=== PATIENT | female | born 1975 | race Two or more races ===

== ENCOUNTER 2024-06-11 20:58 | Inpatient (IN) | payer MEDICAID, OTHER ==
[~2024-06-11] VITALS: Ht 160 cm; Wt 76.9 kg
--- NOTE | 2024-06-11 21:21 | ED.PDOC ---
History of Present Illness HPI Comments 48-year-old female came to ER via EMS for generalized weakness. Per EMS, patient picked up at home, were patient has been feeling generally weak past few days with episodes of recurrent falls. Complaining also of headaches, dizziness, and left lower quadrant abdominal pain with episodes of nausea and vomiting. Upon arrival of paramedics, noted hypotensive at 80/40 mmHg. Denies any active bleeding . Chief Complaint: General Weakness Time Seen by MD: 21:20 Reviewed Notes: Video Manager Notes Allergies: Coded Allergies: NO KNOWN ALLERGIES (Unverified , 06/11/24) Information Source: Patient, Emergency Med Personnel Mode of Arrival: EMS Severity: Moderate Timing: Days Duration: Intermittent Past Medical History PAST MEDICAL HISTORY: Seizures Surgical History: Denies all surgeries Family History Family History: Reviewed,noncontributory to illness Social History Smoker: Non-Smoker Alcohol: Denies ETOH Use Drugs: Denies Drug Use Lives In: Home Constitutional: denies: chills, diaphoresis, fatigue, fever, malaise, sweats, weakness, others EENTM: denies: blurred vision, double vision, ear bleeding, ear discharge, ear drainage, ear pain, ear ringing, eye pain, eye redness, hearing loss, mouth pain, mouth swelling, nasal discharge, nose bleeding, nose congestion, nose pain, photophobia, tearing, throat pain, throat swelling, voice changes, others Respiratory: denies: cough, hemoptysis, orthopnea, SOB at rest, shortness of breath, SOB with excertion, stridor, wheezing, others Cardiovascular: denies: chest pain, dizzy spells, diaphoresis, Dyspnea on exertion, edema, irregular heart beat, left arm pain, lightheadedness, palpitations, PND, syncope, others Gastrointestinal: reports: abdominal pain, nausea, vomiting; denies: abdomen distended, blood streaked bowels, constipated, diarrhea, dysphagia, difficulty swallowing, hematemesis, melena, poor appetite, poor fluid intake, rectal bleeding, rectal pain, others Neurological: reports: dizziness, fainting; denies: headache, left sided numbness, left sided weakness, numbness, paresthesia, pre-existing deficit, right sided numbness, right sided weakness, seizure, speech problems, tingling, tremors, weakness, others Musculoskeletal: denies: back pain, gout, joint pain, joint swelling, muscle pain, muscle stiffness, neck pain, others Integumetry: denies: bruises, change in color, change in hair/nails, dryness, laceration, lesions, lumps, rash, wounds, others Allergic/Immunocompromised: denies: Difficulty Healing, Frequent Infections, Hives, Itching, others Hematologic/Lymphatic: denies: anemia, blood clots, easy bleeding, easy bruising, swollen glands, others Endocrine: denies: excessive hunger, excessive sweating, excessive thirst, excessive urination, flushing, intolerance to cold, intolerance to heat, unexplained weight gain, unexplained weight loss, others Psychiatric: denies: anxiety, bipolar disorder, depression, hopeless, panic disorder, schizophrenia, sleepless, suicidal, others Physical Exam General Appearance: No Apparent Distress, Normal HEENT: Normal ENT Inspection, Pharynx Normal, TMs Normal Neck: Full Range of Motion, Non-Tender, Normal, Normal Inspection Respiratory: Chest Non-Tender, Lungs Clear, No Accessory Muscle Use, No Respiratory Distress, Normal Breath Sounds Cardiovascular: No Edema, No JVD, No Murmur, No Gallop, Normal Peripheral Pulses, Regular Rate/Rhythm Breast Exam: Deferred Gastrointestinal: No Organomegaly, Non Tender, No Pulsatile Mass, Normal Bowel Sounds, Soft Genitalia: Deferred Pelvic: Deferred Rectal: Deferred Extremities: No calf tenderness, Normal capillary refill, Normal inspection, Normal range of motion, Non-tender, No pedal edema Musculoskeletal : Apperance: Normal Neurologic: Alert, carbon setter II-XII nml as Tested, No Motor Deficits, Normal Affect, Normal Mood, No Sensory Deficits Cerebellar Function: Normal Reflexes: Normal Skin: Dry, Normal Color, Warm Lymphatic: No Adenopathy Was a procedure done? Was a procedure done?: No Differential Dx Considerations may include: Anemia, electrolyte imbalance, syncope, hypotension, abdominal pain X-Ray, Labs, Meds, VS Vital Signs Date Time Temp Pulse Resp B/P (MAP) Pulse Ox O2 Delivery O2 Flow Rate FiO2 06/12/24 01:33 80 18 89/50 (63) 94 06/12/24 01:02 69 18 95/48 (64) 94 06/12/24 00:55 81 18 98/47 (64) 94 06/12/24 00:25 77 18 94/51 (65) 95 06/11/24 23:36 97.7 68 12 95/44 (61) 98 97.7 06/11/24 23:15 88 12 88/35 (52) 98 06/11/24 21:45 58 16 98 Room Air* 0 21 06/11/24 21:20 57 13 75/38 (50) 98 06/11/24 21:13 60 06/11/24 21:03 97.7 65 16 81/40 (54) 98 Lab Test 06/11/24 23:30 06/11/24 22:16 06/11/24 21:22 06/11/24 21:14 Range/Units Urine Color Colorless Yellow Urine Clarity Clear Clear Urine pH 5.5 5.0-9.0 Urine Specific [place] 1.009 1.001-1.035 Urine Protein Negative Negative Urine Ketones Negative Negative Urine Blood Negative Negative /uL Urine Nitrite Negative Negative Urine Bilirubin Negative Negative Urine Urobilinogen Normal Negative mg/dL Urine Leukocyte Esterase Negative Negative /uL Urine RBC 1 0 - 4 /hpf Urine Microscopic WBC < 1 0-5 /HPF Urine Squamous Epithelial Cells Few <5 /hpf Urine Bacteria None seen None Seen /hpf Urine Hyaline Casts Mod 0 - 2 /lpf Urine Mucus Few None Seen Urine Glucose Normal Normal mg/dL Troponin I High Sensitivity 4 4 </=34 ng/L White Blood Count 5.2 4.4-10.8 10^3/uL Red Blood Count 3.56 L 4.0-5.20 10^6/uL Hemoglobin 8.8 L 12.2-16.2 g/dL Hematocrit 27.7 L 36.0-46.0 % Mean Corpuscular Volume 77.6 L 80.0-100.0 fL Mean Corpuscular Hemoglobin 24.7 L 28.0-32.0 pg Mean Corpuscular Hemoglobin Concent 31.8 L 32.0-36.0 g/dL Red Cell Distribution Width 17.3 H 11.8-14.3 % Platelet Count 222 140-450 10^3/uL Mean Platelet Volume 9.0 6.9-10.8 fL Neutrophils (%) (Auto) 49.8 37.0-80.0 % Lymphocytes (%) (Auto) 35.8 10.0-50.0 % Monocytes (%) (Auto) 8.3 0.0-12.0 % Eosinophils (%) (Auto) 5.0 0.0-7.0 % Basophils (%) (Auto) 1.1 0.0-2.0 % Neutrophils # (Auto) 2.6 1.6-8.6 10 ^3/uL Lymphocytes # (Auto) 1.9 0.4-5.4 10 ^3/uL Monocytes # (Auto) 0.4 0-1.3 10 ^3/uL Eosinophils # (Auto) 0.3 0-0.8 10 ^3/uL Basophils # (Auto) 0.1 0-0.2 10 ^3/uL Nucleated Red Blood Cells 0.1 % Sodium Level 136 136-145 mmol/L Potassium Level 3.6 3.5-5.1 mmol/L Chloride Level 102 98-107 mmol/L Carbon Dioxide Level 25 20-31 mmol/L Anion Gap 9 5-15 Blood Urea Nitrogen 39 H 9-23 mg/dL Creatinine 2.60 H 0.550-1.02 mg/dL Glomerular Filtration Rate Calc 22 >90 mL/min BUN/Creatinine Ratio 15.0 10.0-20.0 Serum Glucose 95 74-106 mg/dL Lactic Acid Level 1.9 0.4-2.0 mmol/L Calcium Level 9.7 8.7-10.4 mg/dL POC Glucose 93 70-106 mg/dl Current Medications Medications (Trade) Dose Ordered Sig/Susi Route Start Time Stop Time Status Last Admin Sodium Chloride 1,000 ml @ 1,000 mls/hr Q1H ONCE IV 06/11/24 21:15 06/11/24 22:14 DC 06/11/24 21:25 Ondansetron HCl (Zofran) 4 mg ONCE ONCE IV 06/11/24 21:15 06/11/24 21:16 DC 06/11/24 21:34 Sodium Chloride 2,000 ml @ 1,000 mls/hr Q2H ONCE IV 06/11/24 22:30 06/12/24 00:29 DC 06/11/24 22:59 Sodium Chloride 1,000 ml @ 1,000 mls/hr Q1H ONCE IV 06/12/24 01:15 06/12/24 02:14 06/12/24 01:19 EXAM: XY CHEST PORTABLE CLINICAL HISTORY: weakness TECHNIQUE: Single AP view of the chest WID: COMPARISON: None FINDINGS: Lines and tubes: None Chest: The heart size and pulmonary vasculature is within normal limits No pleural effusion, pneumothorax, or consolidation. The osseous structures are grossly intact. IMPRESSION: No acute cardiopulmonary abnormality. Time of 1ST Reevaluation: 21:15 Reevaluation 1ST: Unchanged Patient Education/Counseling: Diagnosis, Treatment Family Education/Counseling: No Family Present Departure 1 Departure Time of Disposition: 01:42 (Patient presented with abdominal pain that was concerning for possible appendicits, gastritis, cholecystitis, colitis, gastroenteritis, sbo, or orther possible surgical emergency. Data: 1. I ordered and reviewed the result of at least 3 labs including a CBC, BMP, and Urinalysis. 2. I independently interpreted the following tests: CT Abdoment and Pelvis is concerning for benign abdomen .Risk:This patient has a high risk of morbidity due to further diagnostic testing or treatment and may suffer from an acute abdominal process disorder. Workup reveals benign abdomen however patient is hypotensive despite multiple fluid boluses. We will empirically cover patient with antibiotics and patient should be admitted for further workup. and possible expert consultation. ) Impression: Primary Impression: Generalized weakness Additional Impressions: Abdominal pain Qualified Codes: R10.84 - Generalized abdominal pain Nausea and vomiting Qualified Codes: R11.12 - Projectile vomiting Disposition: 09 ADMITTED INPATIENT Admit to: [facility] Condition: Guarded Critical Care Note Critical Care Time?: Yes (35 min-critical care time only) Critical care comment: Hypotension Authorized and Performed by: Mabel Keith MD Total critical care time: Approximately 37 minutes Due to a high probability of clinically significant, life threatening deterioration, the patient required my highest level of preparedness to intervene emergently and I personally spent this critical care time directly and personally managing the patient. This critical care time included obtaining a history; examining the patient; pulse oximetry; ordering and review of studies; arranging urgent treatment with development of a management plan; evaluation of patient's response to treatment; frequent reassessment; and, discussions with other providers. This critical care time was performed to assess and manage the high probability of imminent, life-threatening deterioration that could result in multi-organ failure. It was exclusive of separately billable procedures and treating other patients and teaching time. Please see my other sections and the rest of the note for further information on patient assessment and treatment. Stability Stability form required: No Heart Score Heart Score: Heart Score Response (Comments) Value History Slightly Suspicious 0 EKG Normal 0 Age 45-64 1 Risk Factors 1 or 2 risk factors 1 Troponin Normal limit 0 Total 2 I personally scribed for MABEL KEITH MD ([facility]) on 06/11/24 at 21:21. Elec tronically submitted by Joey Combs ([facility]). I personally scribed for MABEL KEITH MD ([facility]) on 06/11/24 at 22:51. Electronically submitted by Joey Combs ([facility]). MABEL KEITH MD Jun 11, 2024 21:21
[2024-06-11] MEDS: SODIUM CHLORIDE 0.9% 1,000 ML IV ONE (21:25)
[2024-06-11] MEDS: ONDANSETRON HCL 4 MG/2 ML VIAL IV ONE (21:34)
[2024-06-11 21:45] VITALS: PULSE 58; RESP 16; O2SAT 98
[2024-06-11 21:58] LABS: Basophils # (auto) 0.1 10 ^3/uL (0-0.2); Basophils % (auto) 1.1 % (0.0-2.0); Eosinophils # (auto) 0.3 10 ^3/uL (0-0.8); Hematocrit 27.7 % (36.0-46.0); Hemoglobin 8.8 g/dL (12.2-16.2); Lymphocytes # (auto) 1.9 10 ^3/uL (0.4-5.4); Lymphocytes % (auto) 35.8 % (10.0-50.0); Mean Corpuscular Hemoglobin 24.7 pg (28.0-32.0); Mean Corpuscular Hgb Conc. 31.8 g/dL (32.0-36.0); Mean Corpuscular Volume 77.6 fL (80.0-100.0); Monocytes # (auto) 0.4 10 ^3/uL (0-1.3); Monocytes % (auto) 8.3 % (0.0-12.0); Neutrophils # (auto) 2.6 10 ^3/uL (1.6-8.6); Neutrophils % (auto) 49.8 % (37.0-80.0); Nucleated Red Blood Cells % 0.1 %; Platelet Count (auto) 222 10^3/uL (140-450); Red Blood Cells 3.56 10^6/uL (4.0-5.20); Red Cell Distribution Width 17.3 % (11.8-14.3); White Blood Cell 5.2 10^3/uL (4.4-10.8)
[2024-06-11 22:06] LABS: Anion Gap 9 (5-15); Carbon Dioxide 25 mmol/L (20-31); Chloride 102 mmol/L (98-107); Potassium 3.6 mmol/L (3.5-5.1); Sodium 136 mmol/L (136-145)
[2024-06-11 22:07] LABS: Calcium 9.7 mg/dL (8.7-10.4)
--- NOTE | 2024-06-11 22:07 | DVH ---
EXAM: XY CHEST PORTABLE CLINICAL HISTORY: weakness TECHNIQUE: Single AP view of the chest WID: COMPARISON: None FINDINGS: Lines and tubes: None Chest: The heart size and pulmonary vasculature is within normal limits. No pleural effusion, pneumothorax, or consolidation. The osseous structures are grossly intact. IMPRESSION: No acute cardiopulmonary abnormality.
[2024-06-11 22:12] LABS: Glucose 95 mg/dL (74-106)
[2024-06-11 22:15] LABS: Blood Urea Nitrogen 39 mg/dL (9-23)
[2024-06-11] MEDS: SODIUM CHLORIDE 0.9% 2,000 ML IV ONE (22:59)
[2024-06-12 00:06] LABS: Urine Bacteria None Seen /hpf (None Seen)
[2024-06-12 00:17] LABS: Urine Blood Negative /uL (Negative); Urine Clarity Clear (Clear); Urine Color Colorless (Yellow); Urine Hyaline Cast MOD /lpf (0 - 2); Urine Mucus FEW (None Seen); Urine Protein, UAD Negative (Negative); Urine Specific Gravity 1.009 (1.001-1.035); Urine Squamous Epithelial Cell FEW /hpf (<5); Urine Urobilinogen Normal (Negative); Urine WBC < 1 /HPF (0-5); Urine pH 5.5 (5.0-9.0)
--- NOTE | 2024-06-12 01:18 | DVH ---
CT SCAN ABDOMEN AND PELVIS WITHOUT CONTRAST CLINICAL HISTORY: abdominal pain, hypotension TECHNIQUE: Helical axial images are obtained from the lung bases through the pelvis without oral cont rast. No intravenous contrast was administered. Coronal and sagittal reformatted images were generate d from thin section reconstructions. One or more of the following radiation dose reduction techniques were used for this examination: automated exposure control, adjustment of the mA and/or kV according to patient size, use of iterative reconstruction technique. COMPARISON: None FINDINGS: LOWER THORAX: Mild dependent atelectatic changes in the imaged lung bases. ABDOMEN AND PELVIS: Evaluation of visceral and vascular structures is limited due to lack of contrast administration. As visualized, the unenhanced liver, spleen, pancreas and adrenals appear grossly unremarkable. No si zable, radiopaque cholelithiasis or biliary ductal dilatation appreciated. No hydroureteronephrosis or sizable, obstructing urinary tract calculi identified. No evidence of abdominal aortic aneurysm. Mild thickening versus underdistention of the stomach. Fluid content noted throughout the small bowel without overt dilatation. Fluid content also noted in the proximal colon. No free intraperitoneal ai r or fluid identified. Normal caliber appendix. No sizable bladder calculus. Low-density lesion in the lower uterine segment/cervical region measurin g approximately 2.3 cm in diameter. No destructive osseous lesions identified. IMPRESSION: Fluid content within the small bowel and proximal large bowel without other evidence of obstruction a t this time. Findings are nonspecific but may reflect gastroenteritis. Please correlate clinically. Recommend follow-up to resolution. Low-density lesion in the lower uterine segment/ cervix. This may represent a cyst or polyp, however, ultrasound may be obtained to further evaluate. HS:Y
[2024-06-12] MEDS: SODIUM CHLORIDE 0.9% 1,000 ML IV ONE ×2 (01:19→09:00)
[2024-06-12] MEDS ORDERED: DOCUSATE SOD 100 MG CAP PO PRN (01:30)
[2024-06-12] MEDS: ACETAMINOPHEN 325 MG TAB PO PRN (02:07)
[2024-06-12] MEDS: CEFEPIME 2GM/50ML NS 50 ML IV ONE (02:07)
[2024-06-12] MEDS: ONDANSETRON HCL 4 MG/2 ML VIAL IV PRN (02:07)
--- NOTE | 2024-06-12 02:24 | DVHHP2 ---
History of Present Illness Reason for Visit: Generalized weakness History of Present Illness The patient is a 48-year-old female with past medical history of seizure who presented to [facility] ED for evaluation of generalized weakness. As reported patient has been feeling generalized weak for the past few days with episodes of recurrent falls due to dizziness, left lower quadrant abdominal pain, episodes of nausea, vomiting, getting worse that prompted this visit. Patient was seen and evaluated in the ED, laboratory data shows WBC 5.2, platelets 222, hemoglobin 8.8, hematocrit 27.7, sodium 136, potassium 3.6, BUN 39, creatinine 2.80, GFR 22, glucose 95, troponin 4, blood pressure 81/40 trend ing up to 99/56, heart rate 74, temperature 97.7 F, O2 saturation 96% on oxygen. Abdomen/pelvis CT revealing fluid content within the small bowel and proximal large bowel without other evidence of obstruction at this time, findings nonspecific but may reflect gastroenteritis. Please see medication orders section in the computer. On my assessment, patient denies chest pain, no headache, no dizziness, no abdominal pain at this moment, no diarrhea, no nausea, no vomiting, no fever, no chills. Patient was admitted for further evaluation and medical management. Past Medical History Seizures, anemia Past Surgical History Denies all surgeries Family History Reviewed, noncontributory to the management of this case. Past Social History The patient lives at home, denies smoking, alcohol or illicit drugs abuse. Review of Systems Constitutional: Yes: Weakness; No: Fever, Chills, Sweats, Malaise, Other Eyes: No: Pain, Vision change, Conjunctivae inflammation, Eyelid inflammation, Other, Redness ENT: No: Ear pain, Ear discharge, Nose pain, Nose discharge, Nose congestion, Mouth pain, Mouth swelling, Throat pain, Throat swelling, Other Respiratory: No: Cough, Dry, Shortness of breath, SOB with excertion, Wheezing, Hemoptysis, Pleuritic Pain, Sputum, Wheezing, Other Cardiovascular: No: Chest Pain, Palpitations, Orthopnea, Paroxysmal Noc. Dyspnea, Edema, Lt Headedness, Other Gastrointestinal: Nausea, Vomiting, Abdominal Pain; No: Diarrhea, Constipation, Melena, Hematochezia, Other Genitourinary: No Dysuria, No Frequency, No Incontinence, No Hematuria, No Retention, No Other Musculoskeletal: No: other, neck pain, shoulder pain, arm pain, back pain, hand pain, leg pain, foot pain Skin: No: Rash, Lesions, Jaundice, Bruising, Other Neurological: No: Weakness, Numbness, Incoordination, Change in speech, Confusion, Seizures, Other Allergies: Coded Allergies: NO KNOWN ALLERGIES (Unverified , 06/11/24) Medications Current Medications Medications Dose Ordered Sig/Susi Route Start Time Stop Time Status Last Admin Dose Admin Acetaminophen/ Hydrocodone Bitart 1 tab Q4HP PRN PO 06/12/24 01:30 Ondansetron HCl 4 mg Q4HP PRN IV 06/12/24 01:30 06/12/24 02:07 4 MG Docusate Sodium 100 mg BIDPRN PRN PO 06/12/24 01:30 Acetaminophen 650 mg Q6HP PRN PO 06/12/24 01:30 06/12/24 02:07 650 MG Levetiracetam 100 ml @ 400 mls/hr BID IV 06/12/24 10:00 Exam Vital Signs Vital Signs Date Time Temp Pulse Resp B/P (MAP) Pulse Ox O2 Delivery O2 Flow Rate FiO2 06/12/24 02:13 74 18 99/56 (70) 96 06/11/24 23:36 97.7 97.7 06/11/24 21:45 Room Air* 0 21 General Appearance: Alert, Oriented X3, Cooperative, No acute distress HEENT: Atraumatic, PERRLA, EOMI, Mucous membr. moist/pink Respiratory: Clear to auscultation, Normal air movement Cardiovascular: Regular rate, Normal S1, Normal S2, No murmurs Abdominal: Normal bowel sounds, Soft, No tenderness, No hepatospenomegaly, No masses Extremities: No clubbing, No cyanosis, No edema, Normal pulses, No tenderness/swelling Skin: No rashes, No breakdown, No significant lesion Neuro: Normal speech, Normal tone, Sensation intact, Cranial nerves 3-12 NL, Reflexes 2+, Other (Generalized weakness) Psych/Mental Status: Mental status NL, Mood NL Labs/Xrays Labs Test 06/11/24 23:30 06/11/24 22:16 06/11/24 21:22 06/11/24 21:14 Range/Units Urine Color Colorless Yellow Urine Clarity Clear Clear Urine pH 5.5 5.0-9.0 Urine Specific [place] 1.009 1.001-1.035 Urine Protein Negative Negative Urine Ketones Negative Negative Urine Blood Negative Negative /uL Urine Nitrite Negative Negative Urine Bilirubin Negative Negative Urine Urobilinogen Normal Negative mg/dL Urine Leukocyte Esterase Negative Negative /uL Urine RBC 1 0 - 4 /hpf Urine Microscopic WBC < 1 0-5 /HPF Urine Squamous Epithelial Cells Few <5 /hpf Urine Bacteria None seen None Seen /hpf Urine Hyaline Casts Mod 0 - 2 /lpf Urine Mucus Few None Seen Urine Glucose Normal Normal mg/dL Troponin I High Sensitivity 4 </=34 ng/L White Blood Count 5.2 4.4-10.8 10^3/uL Red Blood Count 3.56 L 4.0-5.20 10^6/uL Hemoglobin 8.8 L 12.2-16.2 g/dL Hematocrit 27.7 L 36.0-46.0 % Mean Corpuscular Volume 77.6 L 80.0-100.0 fL Mean Corpuscular Hemoglobin 24.7 L 28.0-32.0 pg Mean Corpuscular Hemoglobin Concent 31.8 L 32.0-36.0 g/dL Red Cell Distribution Width 17.3 H 11.8-14.3 % Platelet Count 222 140-450 10^3/uL Mean Platelet Volume 9.0 6.9-10.8 fL Neutrophils (%) (Auto) 49.8 37.0-80.0 % Lymphocytes (%) (Auto) 35.8 10.0-50.0 % Monocytes (%) (Auto) 8.3 0.0-12.0 % Eosinophils (%) (Auto) 5.0 0.0-7.0 % Basophils (%) (Auto) 1.1 0.0-2.0 % Neutrophils # (Auto) 2.6 1.6-8.6 10 ^3/uL Lymphocytes # (Auto) 1.9 0.4-5.4 10 ^3/uL Monocytes # (Auto) 0.4 0-1.3 10 ^3/uL Eosinophils # (Auto) 0.3 0-0.8 10 ^3/uL Basophils # (Auto) 0.1 0-0.2 10 ^3/uL Nucleated Red Blood Cells 0.1 % Sodium Level 136 136-145 mmol/L Potassium Level 3.6 3.5-5.1 mmol/L Chloride Level 102 98-107 mmol/L Carbon Dioxide Level 25 20-31 mmol/L Anion Gap 9 5-15 Blood Urea Nitrogen 39 H 9-23 mg/dL Creatinine 2.60 H 0.550-1.02 mg/dL Glomerular Filtration Rate Calc 22 >90 mL/min BUN/Creatinine Ratio 15.0 10.0-20.0 Serum Glucose 95 74-106 mg/dL Lactic Acid Level 1.9 0.4-2.0 mmol/L Calcium Level 9.7 8.7-10.4 mg/dL POC Glucose 93 70-106 mg/dl PATIENT: SKYLER PAZ ACCT: [id number] UNIT: [id number] : 1975 LOC: ER ROOM / BED: / AGE / SEX: 48 / F ADM STATUS: REG ER SERVICE [id number] ORDERING PHYSICIAN: MABEL SUH MD PROCEDURE(s): ABPL - CT AB PEL WO CON-NO ORAL OR IV REASON: abdominal pain, hypotension ORDER NUMBER(s): [id number], ACCESSION NUMBER(s): [id number] CT SCAN ABDOMEN AND PELVIS WITHOUT CONTRAST CLINICAL HISTORY: abdominal pain, hypotension TECHNIQUE: Helical axial images are obtained from the lung bases through the pelvis without oral contrast. No intravenous contrast was administered. Coronal and sagittal reformatted images were generated from thin section reconstructions. One or more of the following radiation dose reduction techniques were used for this examination: automated exposure control, adjustment of the mA and/or kV according to patient size, use of iterative reconstruction technique. COMPARISON: None FINDINGS: LOWER THORAX: Mild dependent atelectatic changes in the imaged lung bases. ABDOMEN AND PELVIS: Evaluation of visceral and vascular structures is limited due to lack of contrast administration. As visualized, the unenhanced liver, spleen, pancreas and adrenals appear grossly unremarkable. No sizable, radiopaque cholelithiasis or biliary ductal dilatation appreciated. No hydroureteronephrosis or sizable, obstructing urinary tract calculi identified. No evidence of abdominal aortic aneurysm. Mild thickening versus underdistention of the stomach. Fluid content noted throughout the small bowel without overt dilatation. Fluid content also noted in the proximal colon. No free intraperitoneal air or fluid identified. Normal caliber appendix. No sizable bladder calculus. Low-density lesion in the lower uterine segment/cervical region measuring approximately 2.3 cm in diameter. No destructive osseous lesions identified. IMPRESSION: Fluid content within the small bowel and proximal large bowel without other evidence of obstruction at this time. Findings are nonspecific but may reflect gastroenteritis. Please correlate clinically. Recommend follow-up to resolution. Low-density lesion in the lower uterine segment/cervix. This may represent a cyst or polyp, however, ultrasound may be obtained to further evaluate. ORDERING PHYSICIAN: MABEL SUH MD PROCEDURE(s): CXRP - CHEST PORTABLE REASON: weakness ORDER NUMBER(s): [id number], ACCESSION NUMBER(s): [id number] EXAM: XY CHEST PORTABLE CLINICAL HISTORY: weakness TECHNIQUE: Single AP view of the chest WID: COMPARISON: None FINDINGS: Lines and tubes: None Chest: The heart size and pulmonary vasculature is within normal limits. No pleural effusion, pneumothorax, or consolidation. The osseous structures are grossly intact. IMPRESSION: No acute cardiopulmonary abnormality. Assessment/Plan Assessment/Plan Generalized weakness Abdominal pain Acute renal injury Anemia, unspecified Generalized abdominal pain Nausea and vomiting Projectile vomiting Plan 1. Admit to telemetry unit 2. Breathing treatment 3. Pain control management 4. IV antibiotic management 5. Management of fluids and electrolytes 6. Consultation for hospitalist 7. Diagnostic test chest x-ray 8. DVT prophylaxis on SCDs 9. Repeat labs CBC, CMP in a.m. 10. Home medication reviewed and reconciled 11. Continue with current medical management 12. Treatment plan discussed with patient and RN. Patient verbalized understanding. Plan discussed with: Patient, Other (RN) My Orders Orders - LEEANNE BEVERLY DNP Procedure Category Date Status Time Complete Blood Count LAB 06/12/24 Logged 04:00 Comprehensive LAB 06/12/24 Logged Metabolic Panel 04:00 Type And Screen BBK 06/12/24 In Process 01:16 *[facility] CONS 06/12/24 Transmitted -[place] 01:16 Allergies MARCELINO 06/12/24 In Process 01:16 Code Status CODE 06/12/24 Transmitted 01:16 Renal DIET 06/12/24 Transmitted Standard(2gna,3gk,Lopho) Breakfast Oxygen Per Hour RT 06/12/24 Transmitted 01:16 Hydrocodone-Acet PHA 06/12/24 In Process 5/325mg Tab ([place] 01:30 Ondansetron Hcl PHA 06/12/24 In Process (Zofran) 01:30 Docusate Sodium PHA 06/12/24 In Process Capsule ([place] 01:30 Complete Blood Count LAB 06/13/24 Verified 04:00 Comprehensive LAB 06/13/24 Verified Metabolic Panel 04:00 Condition: Serious MARCELINO 06/12/24 In Process 01:16 Acetaminophen Tablet PHA 06/12/24 In Process (Tylenol Tablet) 01:30 Bedrest With Bathroom MARCELINO 06/12/24 In Process Privileg 01:16 Sequential MARCELINO 06/12/24 In Process Compression Device Levetiracetam 500 PHA 06/12/24 In Process Mg/100ml (Levetiraceta 10:00 Problem List: (1) Generalized weakness (2) Abdominal pain (3) Nausea and vomiting (4) Projectile vomiting (5) Generalized abdominal pain (6) Anemia, unspecified (7) Acute renal injury Date of Service: Jun 12, 2024 Billing Provider: LEEANNE BEVERLY DNP Common Visit Codes: [id number] INP/OBS CARE (HIGH) LEEANNE BEVERLY DNP Jun 12, 2024 02:24
[2024-06-12] MEDS ORDERED: NITROGLYCERIN 0.4 MG SL TAB SL PRN (02:30)
[2024-06-12] MEDS ORDERED: MORPHINE SULFATE INJ 2 MG/ml SYRG IV PRN (02:30)
[2024-06-12] MEDS: HYDROcodone-ACET 5/325MG TAB PO PRN (04:51)
[2024-06-12] MEDS: LACTATED RINGER'S 2,000 ML IV ONE (05:08)
[2024-06-12 05:33] LABS: COVID19 ANTIGEN SOFIA FIA NEGATIVE (NEGATIVE); Rapid Influenza A Negative (Negative); Rapid Influenza B Negative (Negative)
[2024-06-12 05:47] LABS: Hemoglobin 8.4 g/dL (12.2-16.2); Monocytes # (auto) 0.3 10 ^3/uL (0-1.3); Neutrophils # (auto) 3.6 10 ^3/uL (1.6-8.6)
[2024-06-12 05:49] LABS: Basophils # (auto) 0.1 10 ^3/uL (0-0.2); Basophils % (auto) 0.9 % (0.0-2.0); Eosinophils # (auto) 0.2 10 ^3/uL (0-0.8); Eosinophils % (auto) 2.7 % (0.0-7.0); Hematocrit 26.8 % (36.0-46.0); Lymphocytes # (auto) 1.5 10 ^3/uL (0.4-5.4); Lymphocytes % (auto) 27.1 % (10.0-50.0); Mean Corpuscular Hemoglobin 24.4 pg (28.0-32.0); Mean Corpuscular Hgb Conc. 31.3 g/dL (32.0-36.0); Mean Corpuscular Volume 78.1 fL (80.0-100.0); Monocytes % (auto) 6.1 % (0.0-12.0); Neutrophils % (auto) 63.2 % (37.0-80.0); Nucleated Red Blood Cells % 0.1 %; Platelet Count (auto) 206 10^3/uL (140-450); Red Blood Cells 3.43 10^6/uL (4.0-5.20); Red Cell Distribution Width 17.5 % (11.8-14.3); White Blood Cell 5.7 10^3/uL (4.4-10.8)
[2024-06-12 06:08] LABS: Alanine Aminotransferase 21 U/L (7-40); Alkaline Phosphatase 54 U/L (46-116); Anion Gap 7 (5-15); BUN/Creatinine Ratio 21.2 (10.0-20.0); Blood Urea Nitrogen 22 mg/dL (9-23); Carbon Dioxide 21 mmol/L (20-31); Glucose 93 mg/dL (74-106); Potassium 3.6 mmol/L (3.5-5.1); Sodium 140 mmol/L (136-145)
[2024-06-12 06:22] LABS: Albumin 3.1 g/dL (3.2-4.8); Aspartate Aminotransferase < 8 U/L (13-40); Chloride 112 mmol/L (98-107); Total Protein 4.8 g/dL (5.7-8.2)
[2024-06-12 06:35] LABS: Bilirubin, Total 0.2 mg/dL (0.2-1.0)
--- NOTE | 2024-06-12 06:45 | ECG ---
[facility] Test Date: 2024-06-11 Test Time: 21:13:35 Pat Name: SKYLER PAZ Department: ER Room: [address] [place] [address] Gender: F [employer] Consultant: PONCE : 1975 Requested By: MABEL SUH Order Number: [id number] Reading MD: Sea Fernández Measurements Intervals [place] Rate: 60 P: 35 TX: 124 QRS: 70 QRSD: 96 T: 47 QT: 433 QTc: 433 Interpretive Statements Sinus rhythm Borderline low voltage, extremity leads ST elev, probable normal early repol pattern Electronically Signed On 06-12-2024 8:22:02 PST by Sea Fernández Please click the below link to view image of tracing.
[2024-06-12] MEDS: SODIUM CHLORIDE 0.9% 1,000 ML IV SCH (08:15)
[2024-06-12 09:18] VITALS: BP 114/64; PULSE 83; RESP 18; TEMP 97.4; O2SAT 98
[2024-06-12 09:22] LABS: % Iron Saturation 13.5 % (15-50)
[2024-06-12 09:29] LABS: Ferritin 8.1 ng/mL (10-291); Folate (Folic Acid) 7.07 ng/mL (>5.38)
[2024-06-12] MEDS: PANTOPRAZOLE 40 MG/10 ML VIAL INJ IV ONE ×2 (11:16→18:41)
[2024-06-12] MEDS: levETIRAcetam 500 mg/100ml 100 ML IV SCH (11:17)
[2024-06-12] MEDS ORDERED: BUPR5DIS TOP (12:13)
[2024-06-12] MEDS ORDERED: HYDR-4902 PO (12:13)
[2024-06-12] MEDS ORDERED: TOPI100T29 PO (12:13)
[2024-06-12] MEDS ORDERED: TIZA4CAP PO (12:13)
[2024-06-12] MEDS ORDERED: PANT40TA2 PO (12:13)
[2024-06-12] MEDS ORDERED: KEP500T PO (12:13)
[2024-06-12 13:00] VITALS: BP 122/77; PULSE 95; RESP 17; TEMP 98.4; O2SAT 98
[2024-06-12] MEDS ORDERED: CEFEPIME 1GM/ 50ML 50 ML IV SCH (14:00)
--- NOTE | 2024-06-12 14:57 | DVHPNRES ---
Progress Note Date Seen: Jun 12, 2024 Resident Creating Document: PAP[place] PAN RESIDENT Medical Necessity Reason Pt with a Central, PICC or Fol: No Subjective Review of Systems Patient is 48 years old female with past medical history of seizure disorder, history of gastritis, migraine came with a complaint of abdominal pain, nausea and vomiting that started 3-4 weeks before. Patient also reported came to the ER 3-4 weeks before after she was discharged home with the advised to follow up with the primary care physician and also a rd scientist. As per patient she could not get in happened from the PCP. But her symptoms has been getting worse. Gradually she has been feeling tired and fatigue and weakness. Patient reported that last couple of days her pain has been worsening, crampy in nature, inability region, 9/10. Patient also endorsed nausea and vomiting several times, cleared watery, no patient also endorsed loose motion for last 3 days, watery, no blood. Also endorsed several fall at home, no head injury. Patient had a history of blood transfusion twice 1 in six-month before [facility] 1 in the [facility] 1 year before. Patient denied any fever, acute joint pain or swelling, chest pain or shortness of breath dysarthria or change in vision. Initial lab workup revealed anemia with a hemoglobin 8.8, MCV 77.6, RDW 17.3, NCH 24.7, MCHC 31.8. Serum iron 39, ferritin 8.1. elevated BUN 39, elevated serum creatinine 2.6, albumin 3.1. Urinalysis negative for UTI, COVID test influenza type A and B was negative. Chest x-ray negative for acute cardiopulmonary abnormality. CT abdomen and Pelvis revealed- Fluid content within the small bowel and proximal large bowel without other evidence of obstruction at this time. Findings are nonspecific but may reflect gastroenteritis. Please correlate clinically. Recommend follow-up to resolution. Low-density lesion in the lower uterine segment/ cervix. This may represent a cyst or polyp, however, ultrasound may be obtained to further evaluate. PMH-tubal ligation PSH- seizure disorder, history of gastritis, migraine Allergy- NKDA Personal History/ Social History- lives at home, denies smoking, alcoholism, drug abuse Patient was seen today at the bedside. Cardiovascular- deny acute chest pain or shortness of breath or cough or palpitation Respiratory denies cough or short of breath or wheezing Musculoskeletal-denies acute joint swelling or tenderness or redness Neurological- denies acute dysarthria, dysphagia, change in vision Psychiatry- denies depression or SI or HI Skin- denies acute rash or purpura Patient was seen today for clinical evaluation. Labs and chart reviewed. Patient complained of ongoing abdominal pain and nausea and vomiting. Lab revealed a trending down serum creatinine 1.02 and trending down BUN 22. Hemoglobin 8.4. Patient's BP was towards the lower trend. Ordered IV normal saline 1 L IV bolus. Objective vital signs Vital Sign Date Time Temp Pulse Resp B/P (MAP) Pulse Ox O2 Delivery O2 Flow Rate FiO2 06/12/24 13:00 98.4 95 17 122/77 (92) 98 98.4 06/12/24 08:42 Room Air* 0 21 Total Intake and Output 06/11/24 06/11/24 06/12/24 15:00 23:00 07:00 Intake Total 1000 ml Balance 1000 ml medications Current Medications Medications Dose Ordered Sig/Susi Route Start Time Stop Time Status Last Admin Dose Admin Acetaminophen/ Hydrocodone Bitart 1 tab Q4HP PRN PO 06/12/24 01:30 06/12/24 13:39 1 TAB Ondansetron HCl 4 mg Q4HP PRN IV 06/12/24 01:30 06/12/24 04:49 4 MG Docusate Sodium 100 mg BIDPRN PRN PO 06/12/24 01:30 Acetaminophen 650 mg Q6HP PRN PO 06/12/24 01:30 06/12/24 02:07 650 MG Levetiracetam 100 ml @ 400 mls/hr BID IV 06/12/24 10:00 06/12/24 11:17 400 MLS/HR Nitroglycerin 0.4 mg Q5MINP PRN SL 06/12/24 02:30 Morphine Sulfate 2 mg Q30M PRN IV 06/12/24 02:30 Sodium Chloride 1,000 ml @ 100 mls/hr Q10H IV 06/12/24 08:15 06/12/24 08:15 100 MLS/HR Pantoprazole Sodium 40 mg DAILY IV 06/13/24 10:00 Ceftriaxone Sodium 50 ml @ 100 mls/hr DAILY@09 IV 06/13/24 09:00 Metronidazole 100 ml @ 100 mls/hr Q8HR IV 06/12/24 22:00 Examination General examination- HEENT- PEERLA, no acute nasal discharge Cardiovascular- S1-S2 audible, rate and rhythm regular, no murmur Respiratory- CTAB, no wheeze or rhonchi Gastrointestinal-nontender, bowel sound+. Nondistended Musculoskeletal-no acute joint swelling or tenderness or redness# Lower extremity- Neurological- cranial nerves intact, no acute dysarthria or dysphagia Psychiatry- denies depression or SI or HI Skin- no acute rash or purpura laboratory and microbiology Laboratory Tests 06/12/24 05:25 Test 06/12/24 05:25 Range/Units Serum Glucose 93 74-106 mg/dL Problem List/Assessment/Plan Problem List/Assessment/Plan Acute gastroenteritis Intractable nausea and vomiting Hypotension likely due to dehydration Generalized weakness likely due to anemia, gastroenteritis and dehydration DARLINE likely due to VMN Moderate anemia likely iron-deficiency anemia, microcytic hypochromic anemia History of recurrent fall, no head injury reported Suspected cervical cyst or polyp Plan -continue IV fluid as prescribed Continue ceftriaxone 1 g IV daily Continue metronidazole 500 mg IV q.8h Continue pantoprazole 40 mg IV daily -continue pain medication as prescribed Iron supplement as prescribed Resume other home medication as appropriate Patient was advised to follow up with Gynecology and Obstetrics further evaluation and care of suspected cervical cyst or polyp Goals of care/advance care planning; FULL CODE; discussed with the patient >15 minutes PUD prophylaxis: Pantoprazole DVT prophylaxis: Plan discussed with Dr. Huff , nursing staff, patient Total time spent on patient evaluation, chart review, assessment and plan, discussion discussion >31 minutes Plan discussed with: Patient Plan discussed with: Patient, Other (RN) My Orders My Orders Orders - PAPO PAN RESIDENT Procedure Category Date Status Time Sodium Chloride 0.9% PHA 06/12/24 In Process 08:15 Stool Occult Blood LAB 06/12/24 Logged 08:48 Pantoprazole PHA 06/13/24 In Process (Protonix) 10:00 Iron Sucrose Complex PHA 06/13/24 In Process (Venofer) 12:00 Ceftriaxone 1gm/50ml PHA 06/13/24 In Process D5w (Rocephin) 09:00 Metronidazole PHA 06/12/24 In Process 500mg/100ml (Flagyl 22:00 Date of Service: Jun 12, 2024 Billing Provider: SHARI LAWRENCE MD Common Visit Codes: [id number] INP/OBS CARE(HIGH) P[place] RESIDENT Jun 12, 2024 14:57 SHARI LAWRENCE MD Jun 15, 2024 00:15
[2024-06-12] MEDS: metroNIDAZOLE 500MG/100ML 100 ML IV ONE (15:34)
[2024-06-12] MEDS: cefTRIAXone 1GM/50ML D5W 50 ML IV ONE (15:35)
--- NOTE | 2024-06-12 15:58 | DVHINCON2 ---
Date of service: Jun 12, 2024 Referring Physician Kedar De León NP Reason for Consultation Acute kidney injury History of Present Illness Mrs. Ross is a 48-year-old female with presentation hospital after reported seizure. Current consultation requested due to elevated serum creatinine to the two range upon admission. She was seen in ARDS syndrome 7. This afternoon. She is awake alert she is tolerating oral fluids. She denies prior history of underlying kidney insufficiency. Subsequent lab data notable for brisk resolution to kidney injury. Past Medical History Seizure disorder Allergies: Coded Allergies: NO KNOWN ALLERGIES (Unverified , 06/11/24) Home Meds Reported Medications Pantoprazole Sodium Sesquihydr (Protonix) 40 Mg Tab, 40 MG PO DAILY, #30 TAB 06/12/24 Buprenorphine (BUTRANS) 5 Mcg/Hr Dis, 1 PATCH TOP QWEEKLY, #4 PATCH 1 Refill 06/12/24 Hydrocodone-Acetaminophen (Hydrocodone Bitartrate/AC 5-325 mg) 1 Tab Tab, 1 TAB PO Q6HPRN, TAB 06/12/24 Tizanidine Hydrochloride (Zanaflex) 4 Mg Cap, 1 CAP PO BID, #60 CAP 06/12/24 Topiramate (Topamax) 100 Mg Tab, 200 MG PO DAILY, TAB 06/12/24 Levetiracetam (KEPPRA TABLET) 500 Mg Tb, 750 MG PO BID, TAB 06/12/24 Current Medications Current Medications Medications (Trade) Dose Ordered Sig/Susi Route PRN Reason Start Time Stop Time Status Last Admin Acetaminophen/ Hydrocodone Bitart (Heartwell 5/325MG Tab) 1 tab Q4HP PRN PO MODERATE PAIN (4-6 PAIN SCALE) 06/12/24 01:30 06/12/24 13:39 Ondansetron HCl (Zofran) 4 mg Q4HP PRN IV NAUSEA / VOMITING 06/12/24 01:30 06/12/24 04:49 Docusate Sodium (Colace Capsule) 100 mg BIDPRN PRN PO FOR CONSTIPATION 06/12/24 01:30 Acetaminophen (Tylenol Tablet) 650 mg Q6HP PRN PO PAIN SCALE 1-3 OR TEMP>100.4 06/12/24 01:30 06/12/24 02:07 Levetiracetam 100 ml @ 400 mls/hr BID IV 06/12/24 10:00 06/12/24 11:17 Nitroglycerin (Ntrostat Sublingual) 0.4 mg Q5MINP PRN SL FOR CHEST PAIN 06/12/24 02:30 Morphine Sulfate 2 mg Q30M PRN IV FOR CHEST PAIN 06/12/24 02:30 Cefepime HCl 50 ml @ 12.5 mls/hr Q12H IV 06/12/24 14:00 06/12/24 12:36 DC Sodium Chloride 1,000 ml @ 100 mls/hr Q10H IV 06/12/24 08:15 06/12/24 08:15 Pantoprazole Sodium (Protonix) 40 mg DAILY IV 06/13/24 10:00 Ceftriaxone Sodium 50 ml @ 100 mls/hr DAILY@09 IV 06/13/24 09:00 Metronidazole 100 ml @ 100 mls/hr Q8HR IV 06/12/24 22:00 Family History: Diabetes mellitus G8 MOTHER G8 FATHER FH: kidney disease G8 FATHER Review of Systems Denies excessive use of NSAIDs, gross hematuria, dysuria, Coca-[employer]a colored urine, skin rash. H&P Exam Vital Signs/I&O Vital Sign Date Time Temp Pulse Resp B/P (MAP) Pulse Ox O2 Delivery O2 Flow Rate FiO2 06/12/24 13:00 98.4 95 17 122/77 (92) 98 98.4 06/12/24 08:42 Room Air* 0 21 Intake and Output 06/11/24 06/12/24 19:00 07:00 Intake Total 1000 ml Balance 1000 ml Intake IV Total 1000 ml Physical Exam Gen: nad heent: nc/at, mmm lungs: cta anteriorly cvs: no rub abd: soft, bowel sounds audible ext: no edema skin: no rash neuro: alert and oriented Labs/Diagnostic Data Labs/Diagnostic Data Laboratory Tests Test 06/12/24 05:25 06/12/24 04:30 06/11/24 23:30 06/11/24 22:16 Range/Units White Blood Count 5.7 4.4-10.8 10^3/uL Red Blood Count 3.43 L 4.0-5.20 10^6/uL Hemoglobin 8.4 L 12.2-16.2 g/dL Hematocrit 26.8 L 36.0-46.0 % Mean Corpuscular Volume 78.1 L 80.0-100.0 fL Mean Corpuscular Hemoglobin 24.4 L 28.0-32.0 pg Mean Corpuscular Hemoglobin Concent 31.3 L 32.0-36.0 g/dL Red Cell Distribution Width 17.5 H 11.8-14.3 % Platelet Count 206 140-450 10^3/uL Mean Platelet Volume 8.8 6.9-10.8 fL Neutrophils (%) (Auto) 63.2 37.0-80.0 % Lymphocytes (%) (Auto) 27.1 10.0-50.0 % Monocytes (%) (Auto) 6.1 0.0-12.0 % Eosinophils (%) (Auto) 2.7 0.0-7.0 % Basophils (%) (Auto) 0.9 0.0-2.0 % Neutrophils # (Auto) 3.6 1.6-8.6 10 ^3/uL Lymphocytes # (Auto) 1.5 0.4-5.4 10 ^3/uL Monocytes # (Auto) 0.3 0-1.3 10 ^3/uL Eosinophils # (Auto) 0.2 0-0.8 10 ^3/uL Basophils # (Auto) 0.1 0-0.2 10 ^3/uL Nucleated Red Blood Cells 0.1 % Sodium Level 140 136-145 mmol/L Potassium Level 3.6 3.5-5.1 mmol/L Chloride Level 112 #H 98-107 mmol/L Carbon Dioxide Level 21 20-31 mmol/L Anion Gap 7 5-15 Blood Urea Nitrogen 22 # 9-23 mg/dL Creatinine 1.04 #H 0.550-1.02 mg/dL Glomerular Filtration Rate Calc 67 >90 mL/min BUN/Creatinine Ratio 21.2 H 10.0-20.0 Serum Glucose 93 74-106 mg/dL Hemoglobin A1c 5.6 <5.7 % A1C Calcium Level 8.0 L 8.7-10.4 mg/dL Iron Level 39 L 50-170 ug/dL Total Iron Binding Capacity 288 250-425 ug/dL Percent Iron Saturation 13.5 L 15-50 % Ferritin 8.1 L 10-291 ng/mL Total Bilirubin 0.2 0.2-1.0 mg/dL Aspartate Amino Transferase (AST) < 8 L 13-40 U/L Alanine Aminotransferase (ALT) 21 7-40 U/L Alkaline Phosphatase 54 46-116 U/L Total Protein 4.8 L 5.7-8.2 g/dL Albumin 3.1 L 3.2-4.8 g/dL Vitamin B12 Level 389 211-911 pg/mL Folic Acid 7.07 >5.38 ng/mL Thyroid Stimulating Hormone (TSH) 2.09 0.55-4.78 uIU/mL Influenza Type A Antigen Negative Negative Influenza Type B Antigen Negative Negative SARS-CoV-2 Antigen (Rapid) Negative NEGATIVE Urine Color Colorless Yellow Urine Clarity Clear Clear Urine pH 5.5 5.0-9.0 Urine Specific [place] 1.009 1.001-1.035 Urine Protein Negative Negative Urine Ketones Negative Negative Urine Blood Negative Negative /uL Urine Nitrite Negative Negative Urine Bilirubin Negative Negative Urine Urobilinogen Normal Negative mg/dL Urine Leukocyte Esterase Negative Negative /uL Urine RBC 1 0 - 4 /hpf Urine Microscopic WBC < 1 0-5 /HPF Urine Squamous Epithelial Cells Few <5 /hpf Urine Bacteria None seen None Seen /hpf Urine Hyaline Casts Mod 0 - 2 /lpf Urine Mucus Few None Seen Urine Glucose Normal Normal mg/dL Troponin I High Sensitivity 4 </=34 ng/L Test 06/11/24 21:22 06/11/24 21:14 Range/Units White Blood Count 5.2 4.4-10.8 10^3/uL Red Blood Count 3.56 L 4.0-5.20 10^6/uL Hemoglobin 8.8 L 12.2-16.2 g/dL Hematocrit 27.7 L 36.0-46.0 % Mean Corpuscular Volume 77.6 L 80.0-100.0 fL Mean Corpuscular Hemoglobin 24.7 L 28.0-32.0 pg Mean Corpuscular Hemoglobin Concent 31.8 L 32.0-36.0 g/dL Red Cell Distribution Width 17.3 H 11.8-14.3 % Platelet Count 222 140-450 10^3/uL Mean Platelet Volume 9.0 6.9-10.8 fL Neutrophils (%) (Auto) 49.8 37.0-80.0 % Lymphocytes (%) (Auto) 35.8 10.0-50.0 % Monocytes (%) (Auto) 8.3 0.0-12.0 % Eosinophils (%) (Auto) 5.0 0.0-7.0 % Basophils (%) (Auto) 1.1 0.0-2.0 % Neutrophils # (Auto) 2.6 1.6-8.6 10 ^3/uL Lymphocytes # (Auto) 1.9 0.4-5.4 10 ^3/uL Monocytes # (Auto) 0.4 0-1.3 10 ^3/uL Eosinophils # (Auto) 0.3 0-0.8 10 ^3/uL Basophils # (Auto) 0.1 0-0.2 10 ^3/uL Nucleated Red Blood Cells 0.1 % Sodium Level 136 136-145 mmol/L Potassium Level 3.6 3.5-5.1 mmol/L Chloride Level 102 98-107 mmol/L Carbon Dioxide Level 25 20-31 mmol/L Anion Gap 9 5-15 Blood Urea Nitrogen 39 H 9-23 mg/dL Creatinine 2.60 H 0.550-1.02 mg/dL Glomerular Filtration Rate Calc 22 >90 mL/min BUN/Creatinine Ratio 15.0 10.0-20.0 Serum Glucose 95 74-106 mg/dL Lactic Acid Level 1.9 0.4-2.0 mmol/L Calcium Level 9.7 8.7-10.4 mg/dL Troponin I High Sensitivity 4 </=34 ng/L POC Glucose 93 70-106 mg/dl Assessment IMP: 1) Hemodynamically mediated DARLINE/VMN - resolved 2) CKD II? Baseline creatinine unknown to the mortgage loan underwriter 3) seizure disorder 4) hypertension REC: - agree with current supportive care/management - noted brisk resolution to acute kidney injury - we will check CPK with morning labs - clinically stable from Nephrology perspective. Thank you for the consultation. Plan discussed with: Patient WAQAS HERNANDEZ MD Jun 12, 2024 15:58
[2024-06-12 16:59] VITALS: BP 91/54; PULSE 94; RESP 17; TEMP 98.8; O2SAT 98
[2024-06-12] MEDS: MORPHINE SULFATE 4 MG/ML SYR/VIAL IV ONE (18:47)
[2024-06-12 20:00] VITALS: PULSE 107
[2024-06-12 21:00] VITALS: BP 93/60; PULSE 92; RESP 18; TEMP 98.2; O2SAT 99
[2024-06-12] MEDS: metroNIDAZOLE 500MG/100ML 100 ML IV SCH (21:26)
[2024-06-13] VITALS (8 sets, daily range): BP systolic 105–123; BP diastolic 68–82; PULSE 78–100; RESP 17–19; TEMP 97.2–98.1; O2SAT 94–99
[2024-06-13 06:27] LABS: Basophils # (auto) 0 10 ^3/uL (0-0.2); Basophils % (auto) 0.7 % (0.0-2.0); Eosinophils # (auto) 0.1 10 ^3/uL (0-0.8); Eosinophils % (auto) 2.3 % (0.0-7.0); Hematocrit 25.8 % (36.0-46.0); Hemoglobin 8.2 g/dL (12.2-16.2); Lymphocytes # (auto) 1.2 10 ^3/uL (0.4-5.4); Lymphocytes % (auto) 34.3 % (10.0-50.0); Mean Corpuscular Hemoglobin 24.7 pg (28.0-32.0); Mean Corpuscular Hgb Conc. 31.9 g/dL (32.0-36.0); Mean Corpuscular Volume 77.4 fL (80.0-100.0); Monocytes # (auto) 0.2 10 ^3/uL (0-1.3); Monocytes % (auto) 6.1 % (0.0-12.0); Neutrophils % (auto) 56.6 % (37.0-80.0); Platelet Count (auto) 223 10^3/uL (140-450); Red Blood Cells 3.33 10^6/uL (4.0-5.20); Red Cell Distribution Width 17.9 % (11.8-14.3); White Blood Cell 3.5 10^3/uL (4.4-10.8)
[2024-06-13 06:48] LABS: Alanine Aminotransferase 16 U/L (7-40); Alkaline Phosphatase 52 U/L (46-116); Anion Gap 5 (5-15); BUN/Creatinine Ratio 21.7 (10.0-20.0); Blood Urea Nitrogen 10 mg/dL (9-23); Carbon Dioxide 23 mmol/L (20-31); Magnesium 1.7 mg/dL (1.6-2.6); Potassium 3.5 mmol/L (3.5-5.1); Sodium 140 mmol/L (136-145)
[2024-06-13 06:49] LABS: Creatine Kinase IFCC 87 U/L (34-145)
[2024-06-13 06:57] LABS: Albumin 3.1 g/dL (3.2-4.8); Aspartate Aminotransferase 11 U/L (13-40); Bilirubin, Total 0.2 mg/dL (0.2-1.0); Calcium 8.1 mg/dL (8.7-10.4); Chloride 112 mmol/L (98-107); Glucose 112 mg/dL (74-106); Total Protein 4.7 g/dL (5.7-8.2)
[2024-06-13] MEDS: PANTOPRAZOLE 40 MG/10 ML VIAL INJ IV SCH (08:58)
[2024-06-13] MEDS: cefTRIAXone 1GM/50ML D5W 50 ML IV SCH (08:58)
--- NOTE | 2024-06-13 11:33 | DVHDSRES ---
Discharge Summary Date of Admission Resident Creating Document: PAPO PAN RESIDENT Jun 12, 2024 at 02:22 Date of Discharge: Jun 13, 2024 Admitting Diagnosis Intractable abdominal pain and nausea and vomiting Labs/Diagnostic Data: Laboratory Results Test 06/13/24 05:44 06/12/24 05:25 06/12/24 04:30 06/11/24 23:30 White Blood Count 3.5 10^3/uL (4.4-10.8) Red Blood Count 3.33 10^6/uL (4.0-5.20) Hemoglobin 8.2 g/dL (12.2-16.2) Hematocrit 25.8 % (36.0-46.0) Mean Corpuscular Volume 77.4 fL (80.0-100.0) Mean Corpuscular Hemoglobin 24.7 pg (28.0-32.0) Mean Corpuscular Hemoglobin Concent 31.9 g/dL (32.0-36.0) Red Cell Distribution Width 17.9 % (11.8-14.3) Platelet Count 223 10^3/uL (140-450) Mean Platelet Volume 8.7 fL (6.9-10.8) Neutrophils (%) (Auto) 56.6 % (37.0-80.0) Lymphocytes (%) (Auto) 34.3 % (10.0-50.0) Monocytes (%) (Auto) 6.1 % (0.0-12.0) Eosinophils (%) (Auto) 2.3 % (0.0-7.0) Basophils (%) (Auto) 0.7 % (0.0-2.0) Neutrophils # (Auto) 2.0 10 ^3/uL (1.6-8.6) Lymphocytes # (Auto) 1.2 10 ^3/uL (0.4-5.4) Monocytes # (Auto) 0.2 10 ^3/uL (0-1.3) Eosinophils # (Auto) 0.1 10 ^3/uL (0-0.8) Basophils # (Auto) 0 10 ^3/uL (0-0.2) Nucleated Red Blood Cells 0.0 % Sodium Level 140 mmol/L (136-145) Potassium Level 3.5 mmol/L (3.5-5.1) Chloride Level 112 mmol/L (98-107) Carbon Dioxide Level 23 mmol/L (20-31) Anion Gap 5 (5-15) Blood Urea Nitrogen 10 mg/dL (9-23) Creatinine 0.46 mg/dL (0.550-1.02) Glomerular Filtration Rate Calc 119 mL/min (>90) BUN/Creatinine Ratio 21.7 (10.0-20.0) Serum Glucose 112 mg/dL (74-106) Calcium Level 8.1 mg/dL (8.7-10.4) Magnesium Level 1.7 mg/dL (1.6-2.6) Total Bilirubin 0.2 mg/dL (0.2-1.0) Aspartate Amino Transferase (AST) 11 U/L (13-40) Alanine Aminotransferase (ALT) 16 U/L (7-40) Alkaline Phosphatase 52 U/L (46-116) Creatine Kinase 87 U/L (34-145) Total Protein 4.7 g/dL (5.7-8.2) Albumin 3.1 g/dL (3.2-4.8) Hemoglobin A1c 5.6 % A1C (<5.7) Iron Level 39 ug/dL (50-170) Total Iron Binding Capacity 288 ug/dL (250-425) Percent Iron Saturation 13.5 % (15-50) Ferritin 8.1 ng/mL (10-291) Vitamin B12 Level 389 pg/mL (211-911) Folic Acid 7.07 ng/mL (>5.38) Thyroid Stimulating Hormone (TSH) 2.09 uIU/mL (0.55-4.78) Influenza Type A Antigen Negative (Negative) Influenza Type B Antigen Negative (Negative) SARS-CoV-2 Antigen (Rapid) Negative (NEGATIVE) Urine Color Colorless (Yellow) Urine Clarity Clear (Clear) Urine pH 5.5 (5.0-9.0) Urine Specific [place] 1.009 (1.001-1.035) Urine Protein Negative (Negative) Urine Ketones Negative (Negative) Urine Blood Negative /uL (Negative) Urine Nitrite Negative (Negative) Urine Bilirubin Negative (Negative) Urine Urobilinogen Normal mg/dL (Negative) Urine Leukocyte Esterase Negative /uL (Negative) Urine RBC 1 /hpf (0 - 4) Urine Microscopic WBC < 1 /HPF (0-5) Urine Squamous Epithelial Cells Few /hpf (<5) Urine Bacteria None seen /hpf (None Seen) Urine Hyaline Casts Mod /lpf (0 - 2) Urine Mucus Few (None Seen) Urine Glucose Normal mg/dL (Normal) Test 06/11/24 22:16 06/11/24 21:22 06/11/24 21:14 Troponin I High Sensitivity 4 ng/L (</=34) Lactic Acid Level 1.9 mmol/L (0.4-2.0) POC Glucose 93 mg/dl (70-106) Other Laboratory Tests 06/13/24 05:44 Brief Hx & Hospital Course: HPI-Patient is 48 years old female with past medical history of seizure disorder, history of gastritis, migraine came with a complaint of abdominal pain, nausea and vomiting that started 3-4 weeks before. Patient also reported came to the ER 3-4 weeks before after she was discharged home with the advised to follow up with the primary care physician and also a in flight technician. As per patient she could not get in happened from the PCP. But her symptoms has been getting worse. Gradually she has been feeling tired and fatigue and weakness. Patient reported that last couple of days her pain has been worsening, crampy in nature, inability region, 9/10. Patient also endorsed nausea and vomiting several times, cleared watery, no patient also endorsed loose motion for last 3 days, watery, no blood. Also endorsed several fall at home, no head injury. Patient had a history of blood transfusion twice 1 in six-month before [facility] 1 in the [facility] 1 year before. Patient denied any fever, acute joint pain or swelling, chest pain or shortness of breath dysarthria or change in vision. Initial lab workup revealed anemia with a hemoglobin 8.8, MCV 77.6, RDW 17.3, NCH 24.7, MCHC 31.8. Serum iron 39, ferritin 8.1. elevated BUN 39, elevated serum creatinine 2.6, albumin 3.1. Urinalysis negative for UTI, COVID test influenza type A and B was negative. Chest x-ray negative for acute cardiopulmonary abnormality. CT abdomen and Pelvis revealed- Fluid content within the small bowel and proximal large bowel without other evidence of obstruction at this time. Findings are nonspecific but may reflect gastroenteritis. Please correlate clinically. Recommend follow-up to resolution. Low-density lesion in the lower uterine segment/ cervix. This may represent a cyst or polyp, however, ultrasound may be obtained to further evaluate. Hospital course-came to the ER with intractable abdominal pain and nausea and vomiting. Patient was admitted to the hospital due to intractable abdominal pain likely due to acute gastroenteritis.Initial lab workup revealed anemia with a hemoglobin 8.8, MCV 77.6, RDW 17.3, NCH 24.7, MCHC 31.8. Serum iron 39, ferritin 8.1. elevated BUN 39, elevated serum creatinine 2.6, albumin 3.1. Urinalysis negative for UTI, COVID test influenza type A and B was negative. Chest x-ray negative for acute cardiopulmonary abnormality. CT abdomen and Pelvis revealed- Fluid content within the small bowel and proximal large bowel without other evidence of obstruction at this time. Findings are nonspecific but may reflect gastroenteritis. Please correlate clinically. Recommend follow-up to resolution. Low-density lesion in the lower uterine segment/ cervix. This may represent a cyst or polyp, however, ultrasound may be obtained to further evaluate. Patient's symptoms improved with conservative management. Patient was adamant about going home today. Patient was discharged with Protonix 40 mg by mouth daily and Carafate. Patient was advised to follow up with the primary care physician in 1 week and also to keep up with the scheduled with the in flight technician. Patient was hemodynamically stable on discharge. Patient's meds were sent to the pharmacy electronically. Diagnosis Acute gastroenteritis Intractable nausea and vomiting Hypotension likely due to dehydration Generalized weakness likely due to anemia, gastroenteritis and dehydration DARLINE likely due to VMN Suspected CKD stage 2-no previous documents Moderate anemia likely iron-deficiency anemia, microcytic hypochromic anemia History of recurrent fall, no head injury reported Suspected cervical cyst or polyp Discharge plan Continue Protonix 40 mg by mouth daily Continue Carafate 1 g by mouth 2 times a day Ferrous sulfate 325 mg p.o. daily Zofran 4 mg by mouth every 6 hours as needed Resume other home medication as used to take Full liquid diet for 1 week Please follow up with the primary care physician in 1 week and also to follow up with the report of stool occult blood test for further evaluation and care Patient was advised to follow up with the loan underwriter for further evaluation and care of anemia. Please follow up with the in flight technician as per schedule Avoid spicy diet Patient was advised to follow up with the baby attendant and soiled linen distributor for suspected cervical cyst or polyp Consults/Reason for consult Operations or Procedures [facility] [address] [place] [employer] [place] [id number] Ph: [phone] DIAGNOSTIC IMAGING Diagnostic Imaging Report : [id number] Signed PATIENT: SKYLER PAZ ACCT: [id number] UNIT: [id number] : 1975 LOC: ER ROOM / BED: / AGE / SEX: 48 / F ADM STATUS: REG ER SERVICE 0021 ORDERING PHYSICIAN: MABEL SUH MD PROCEDURE(s): ABPL - CT AB PEL WO CON-NO ORAL OR IV REASON: abdominal pain, hypotension ORDER NUMBER(s): [id number], ACCESSION NUMBER(s): [id number] CT SCAN ABDOMEN AND PELVIS WITHOUT CONTRAST CLINICAL HISTORY: abdominal pain, hypotension TECHNIQUE: Helical axial images are obtained from the lung bases through the pelvis without oral contrast. No intravenous contrast was administered. Coronal and sagittal reformatted images were generated from thin section reconstructions. One or more of the following radiation dose reduction techniques were used for this examination: automated exposure control, adjustment of the mA and/or kV according to patient size, use of iterative reconstruction technique. COMPARISON: None FINDINGS: LOWER THORAX: Mild dependent atelectatic changes in the imaged lung bases. ABDOMEN AND PELVIS: Evaluation of visceral and vascular structures is limited due to lack of contrast administration. As visualized, the unenhanced liver, spleen, pancreas and adrenals appear grossly unremarkable. No sizable, radiopaque cholelithiasis or biliary ductal dilatation appreciated. No hydroureteronephrosis or sizable, obstructing urinary tract calculi identified. No evidence of abdominal aortic aneurysm. Mild thickening versus underdistention of the stomach. Fluid content noted throughout the small bowel without overt dilatation. Fluid content also noted in the proximal colon. No free intraperitoneal air or fluid identified. Normal caliber appendix. No sizable bladder calculus. Low-density lesion in the lower uterine segment/cervical region measuring approximately 2.3 cm in diameter. No destructive osseous lesions identified. IMPRESSION: Fluid content within the small bowel and proximal large bowel without other evidence of obstruction at this time. Findings are nonspecific but may reflect gastroenteritis. Please correlate clinically. Recommend follow-up to resolution. Low-density lesion in the lower uterine segment/ cervix. This may represent a cyst or polyp, however, ultrasound may be obtained to further evaluate. HS:Y ATED BY: MAURICIO PINO MD DICTATED DATE/TIME: 06/12/24114 SIGNED BY: MAURICIO PINO MD SIGNED DATE/TIME: 06/12/24114 CC: [place] [id number] Ph: [phone] DIAGNOSTIC IMAGING Diagnostic Imaging Report : [id number] Signed PATIENT: SKYLER PAZ ACCT: [id number] UNIT: [id number] : 1975 LOC: ER ROOM / BED: / AGE / SEX: 48 / F ADM STATUS: REG ER SERVICE 10 ORDERING PHYSICIAN: MABEL SUH MD PROCEDURE(s): CXRP - CHEST PORTABLE REASON: weakness ORDER NUMBER(s): [id number], ACCESSION NUMBER(s): [id number] EXAM: XY CHEST PORTABLE CLINICAL HISTORY: weakness TECHNIQUE: Single AP view of the chest WID: COMPARISON: None FINDINGS: Lines and tubes: None Chest: The heart size and pulmonary vasculature is within normal limits. No pleural effusion, pneumothorax, or consolidation. The osseous structures are grossly intact. IMPRESSION: No acute cardiopulmonary abnormality. ATED BY: KAYDEN BAKER MD DICTATED DATE/TIME: 06/11/242204 SIGNED BY: KAYDEN BAKER MD SIGNED DATE/TIME: 06/11/242204 CC: Condition at Discharge: Stable Final Diagnosis/Problems List Acute gastroenteritis Intractable nausea and vomiting Hypotension likely due to dehydration Generalized weakness likely due to anemia, gastroenteritis and dehydration DARLINE likely due to VMN Sinus tachycardia likely due to dehydration Suspected CKD stage 2-no previous documents Moderate anemia likely iron-deficiency anemia, microcytic hypochromic anemia Hypoxia likelydue to abdominal pain induced hypoventilation No sepsis or SIRS History of recurrent fall, no head injury reported Suspected cervical cyst or polyp Discharge Disposition: Home Discharge Instruct/Medications Follow Up/Referral: Full liquid diet for 1 week Please follow up with the primary care physician in 1 week and also to follow up with the report of stool occult blood test for further evaluation and care Patient was advised to follow up with the loan underwriter for further evaluation and care of anemia. Please follow up with the in flight technician as per schedule Avoid spicy diet Patient was advised to follow up with the baby attendant and soiled linen distributor for suspected cervical cyst or polyp Medications: Continue Protonix 40 mg by mouth daily Continue Carafate 1 g by mouth 2 times a day Zofran 4 mg by mouth every 6 hours as needed Resume other home medications as used to take Full liquid diet for 1 week Please follow up with the primary care physician in 1 week Please follow up with the in flight technician as per schedule Avoid spicy diet Patient was advised to follow up with the baby attendant and soiled linen distributor for suspected cervical cyst or polyp Discharge Statement: "Patient was advised to return to the ER or call 911 if any headaches, dizziness, shortness of breath, chest pain, abdominal pain, bleeding, fevers, or worsening of medical condition. Patient was counseled about treatment plan, medications, possible side effects, patientverbalized understanding. All questions were answered to the best of my ability. This discharge took greater then 30 minutes in planning, reviewing documentation, counseling the patient, and discussing with other team members." ASSESSMENT ASSESSMENT Assessment Date of Service: Jun 13, 2024 Billing Provider: SHARI LAWRENCE MD Common Visit Codes: 83561-ECB/OBS DISCH DAY >30min PAPO PAN RESIDENT Jun 13, 2024 11:33 SHARI LAWRENCE MD Jun 15, 2024 00:36
[2024-06-13] MEDS ORDERED: SUCR1TAB31 OR (11:45)
[2024-06-13] MEDS ORDERED: ZOFR4T PO (11:45)
[2024-06-13] MEDS: IRON SUCROSE COMPLEX 110 ML IV ONE (12:39)
--- NOTE | 2024-06-13 13:22 | DVHPN2 ---
Progress Note Date Seen: Jun 13, 2024 Medical Necessity Reason Pt with a Central, PICC or Fol: No Subjective Review of Systems No new compliants. States she feels better today, possible discharge today. Patient reports: No new complaints, Feels better Objective vital signs Vital Sign Date Time Temp Pulse Resp B/P (MAP) Pulse Ox O2 Delivery O2 Flow Rate FiO2 06/13/24 09:00 97.5 85 18 114/71 (85) 98 97.5 06/12/24 20:00 Nasal Cannula* 2 28 Total Intake and Output 06/12/24 06/12/24 06/13/24 15:00 23:00 07:00 Intake Total 200 ml 480 ml 1900 ml Balance 200 ml 480 ml 1900 ml medications Current Medications Medications Dose Ordered Sig/Susi Route Start Time Stop Time Status Last Admin Dose Admin Acetaminophen/ Hydrocodone Bitart 1 tab Q4HP PRN PO 06/12/24 01:30 06/13/24 08:59 1 TAB Ondansetron HCl 4 mg Q4HP PRN IV 06/12/24 01:30 06/12/24 04:49 4 MG Docusate Sodium 100 mg BIDPRN PRN PO 06/12/24 01:30 Acetaminophen 650 mg Q6HP PRN PO 06/12/24 01:30 06/12/24 02:07 650 MG Levetiracetam 100 ml @ 400 mls/hr BID IV 06/12/24 10:00 06/13/24 08:58 400 MLS/HR Nitroglycerin 0.4 mg Q5MINP PRN SL 06/12/24 02:30 Morphine Sulfate 2 mg Q30M PRN IV 06/12/24 02:30 Sodium Chloride 1,000 ml @ 100 mls/hr Q10H IV 06/12/24 08:15 06/13/24 01:48 100 MLS/HR Pantoprazole Sodium 40 mg DAILY IV 06/13/24 10:00 06/13/24 08:58 40 MG Ceftriaxone Sodium 50 ml @ 100 mls/hr DAILY@09 IV 06/13/24 09:00 06/13/24 08:58 100 MLS/HR Metronidazole 100 ml @ 100 mls/hr Q8HR IV 06/12/24 22:00 06/13/24 04:44 100 MLS/HR Examination Gen: Patient appears stated age. In no acute distress. Pulm: Bilateral air entry no wheezes, rhonchi or rales. CVS: RRR, Normal S1 and S2 Ext: No edema Neuro: AOx4. laboratory and microbiology Laboratory Tests 06/13/24 05:44 Test 06/13/24 05:44 Range/Units Serum Glucose 112 H 74-106 mg/dL Microbiology Date/Time Source Procedure Growth Status 06/11/24 21:33 Blood Blood Culture - Preliminary NO GROWTH AFTER 24 HOURS OF INCUBATION. Resulted Labs and/or images reviewed: Labs reviewed by me Problem List/Assessment/Plan Problem List/Assessment/Plan IMP: 1) Hemodynamically mediated DARLINE/VMN - resolved creat 0.46, eGFR 119. CPK 87 2) CKD II? Baseline creatinine unknown 3) seizure disorder 4) hypertension-within target range REC: - Chemistry panel - Agree with current supportive care/management - Clinically stable from Nephrology perspective. Will sign off on case. May reconsult prn Case discussed with Dr. Alexander Plan discussed with: Patient SAÚL MEYER TAN Jun 13, 2024 13:22
[2024-06-13] MEDS ORDERED: FER325T PO (14:10)
== END 2024-06-13 21:05 | disposition home or self-care (01) | DRG 248 ==
LOC: ER 20:58 → EDBD 20:58 → EDSEX 20:58 → OVERFLOW 06-12 02:22 → TELE-EAST 06-12 09:24
PROVIDERS: ADMIT Student in an Organized Health Care Education/Training Program; ATTEND Student in an Organized Health Care Education/Training Program
DX: A04.9 Bacterial intestinal infection, unspecified (principal); N17.0 Acute kidney failure with tubular necrosis; E44.1 Mild protein-calorie malnutrition; I95.9 Hypotension, unspecified; E86.0 Dehydration; D50.9 Iron deficiency anemia, unspecified; R29.6 Repeated falls; G40.909 Epilepsy, unspecified, not intractable, without status epilepticus; I12.9 Hypertensive chronic kidney disease with stage 1 through stage 4 chronic kidney disease, or unspecified chronic kidney disease; N18.2 Chronic kidney disease, stage 2 (mild); N88.8 Other specified noninflammatory disorders of cervix uteri; N84.1 Polyp of cervix uteri; Z79.899 Other long term (current) drug therapy; Z68.24 Body mass index [BMI] 24.0-24.9, adult
CPT/HCPCS: 36415; 71045; 74176; 80048; 80053; 81001; 82550; 82607; 82728; 82746; 82962; 83036; 83540; 83550; 83605; 83735; 84443; 84484; 85025; 86850; 86900; 86901; 87040; 87426; 87804; 96361; 96365; 96375; 99291; G0378; J0692; J1756; J2405; J2470; J3490

== ENCOUNTER 2025-03-09 19:04 | Emergency (ER) | payer MEDICAID ==
[~2025-03-09] VITALS: Ht 160 cm; Wt 59.3 kg
[~2025-03-09 19:04] MED LIST: BUPR5DIS TOP; FER325T PO; HYDR-4902 PO; KEP500T PO; PANT40TA2 PO; TIZA4CAP PO; TOPI100T29 PO; ZOFR4T PO
[2025-03-09] MEDS: ONDANSETRON HCL 4 MG/2 ML VIAL IV ONE (20:15)
--- NOTE | 2025-03-09 20:45 | ED.PDOC ---
History of Present Illness HPI Comments 49-year-old female status post cholecystectomy 02/20/25 at [facility] presents to the emergency department with epigastric abdominal pain. Patient reports the pain started 2 days ago. Pain is similar to pain that she was having prior to cholecystectomy. Patient reports his pain has been chronic and cholecystectomy was med to treat this pain. This is the 1st time patient has a experienced this pain since having the surgery. At this time she reports the pain is 10/10 in severity, associated with nausea, vomiting. She is taking Tylenol 3 at home with some relief of her pain. REVIEW OF SYSTEMS: General: No fever, no chills, or fatigue HEENT: No sore throat, no earache, no congestion, no neck pain. Cardiac: No chest pain. No palpitations. Lungs: No shortness of breath, no cough. GI: No nausea, no vomiting, no diarrhea, no constipation, no abdominal pain : No dysuria, frequency, or urgency. No hematuria. Musculoskeletal: No joint pain , no joint swelling, no extremity edema. Skin: No rash, no itching. Neuro: No headache, no dizziness, no weakness (And as sated in HPI) PHYSICAL EXAM: General: Awake, alert and oriented. No acute distress. Skin: Skin in warm, dry and intact. Appropriate color for ethnicity. HEENT: The head is normocephalic and atraumatic. Conjunctivae are clear without exudates or hemorrhage. Sclera is non-icteric. Eyelids are normal in appearance without swelling or lesions. Oral mucosa is pink and moist Respiratory: No signs of respiratory distress. Abdominal: Abdomen is soft, positive epigastric tenderness. Voluntary guarding. No rigidity. Extremities: Upper and lower extremities are atraumatic in appearance without deformity or edema. Neurological: The patient is awake, alert and oriented to person, place, and time with normal speech. Speech is clear. There is no facial asymmetry. Normal gait Psychiatric: Tearful affect. Chief Complaint: Abdominal Pain Time Seen by MD: 19:34 Allergies: Coded Allergies: NO KNOWN ALLERGIES (Unverified , 06/11/24) Home Meds Active Scripts Ferrous Sulfate (Ferrous Sulfate) 325 Mg Tab, 325 MG PO DAILY for 30 Days, #30 TAB Prov:PAPO PAN RESIDENT 06/13/24 Ondansetron Odt 4MG Tab (ZOFRAN PO) 4 Mg Tb, 4 MG PO Q6HP PRN, #28 TAB ODT TAB-DISSOLVE IN MOUTH, THEN SWALLOW Prov:PAPO PAN RESIDENT 06/13/24 Reported Medications Pantoprazole Sodium Sesquihydr (Protonix) 40 Mg Tab, 40 MG PO DAILY, #30 TAB 06/12/24 Buprenorphine (BUTRANS) 5 Mcg/Hr Dis, 1 PATCH TOP QWEEKLY, #4 PATCH 1 Refill 06/12/24 Hydrocodone-Acetaminophen (Hydrocodone Bitartrate/AC 5-325 mg) 1 Tab Tab, 1 TAB PO Q6HPRN, TAB 06/12/24 Tizanidine Hydrochloride (Zanaflex) 4 Mg Cap, 1 CAP PO BID, #60 CAP 06/12/24 Topiramate (Topamax) 100 Mg Tab, 200 MG PO DAILY, TAB 06/12/24 Levetiracetam (KEPPRA TABLET) 500 Mg Tb, 750 MG PO BID, TAB 06/12/24 Mode of Arrival: EMS Past Medical History PAST MEDICAL HISTORY: Seizures Surgical History: Denies all surgeries Family History Family History: Reviewed,noncontributory to illness Social History Smoker: Non-Smoker Alcohol: Denies ETOH Use Drugs: Denies Drug Use Lives In: Home Was a procedure done? Was a procedure done?: No Differential Dx Considerations may include: Differential diagnoses considered include: Abdominal aortic aneurysm, LA, esophageal rupture, intestinal obstruction, mesenteric ischemia, perforated viscus or solid organ rupture, CHF with hepatomegaly, pneumonia, abscess, appendicitis, biliary disease, diverticulitis, gastritis, gastroenteritis, hepatitis, hernia, inflammatory bowel disease, pancreatitis, peptic ulcer disease, urinary tract infection, ureteral colic, constipation, GERD, irritable syndrome, abdominal wall pain, nonspecific abdominal pain, herpes zoster, nephrolithiasis. Also ruptured ectopic , ovarian torsion/cyst, tubo- ovarian abscess, PID, endometriosis, mittleschmerz. X-Ray, Labs, Meds, VS Vital Signs Date Time Temp Pulse Resp B/P (MAP) Pulse Ox O2 Delivery O2 Flow Rate FiO2 03/10/25 00:49 97.6 49 16 151/86 (107) 98 97.6 03/09/25 21:15 92 26 156/95 03/09/25 20:38 115 26 183/114 (137) 98 03/09/25 19:22 99.0 84 16 159/103 98 99.0 Lab Test 03/09/25 22:47 03/09/25 22:00 03/09/25 20:51 03/09/25 20:48 Range/Units Lactic Acid Level 1.0 2.9 *H 0.4-2.0 mmol/L Sodium Level 147 H 136-145 mmol/L Potassium Level 3.4 L 3.5-5.1 mmol/L Chloride Level 111 H 98-107 mmol/L Carbon Dioxide Level 23 20-31 mmol/L Anion Gap 13 5-15 Blood Urea Nitrogen 13 9-23 mg/dL Creatinine 0.57 0.550-1.02 mg/dL Glomerular Filtration Rate Calc 112 >90 mL/min BUN/Creatinine Ratio 22.8 H 10.0-20.0 Serum Glucose 88 74-106 mg/dL Calcium Level 9.0 8.7-10.4 mg/dL Total Bilirubin 0.4 0.2-1.0 mg/dL Aspartate Amino Transferase (AST) 71 H 13-40 U/L Alanine Aminotransferase (ALT) 124 H 7-40 U/L Alkaline Phosphatase 306 H 46-116 U/L Total Protein 7.6 5.7-8.2 g/dL Albumin 4.5 3.2-4.8 g/dL Lipase 70 H 12-53 U/L White Blood Count 6.0 4.4-10.8 10^3/uL Red Blood Count 4.96 4.0-5.20 10^6/uL Hemoglobin 13.2 12.2-16.2 g/dL Hematocrit 40.1 36.0-46.0 % Mean Corpuscular Volume 80.8 80.0-100.0 fL Mean Corpuscular Hemoglobin 26.6 L 28.0-32.0 pg Mean Corpuscular Hemoglobin Concent 33.0 32.0-36.0 g/dL Red Cell Distribution Width 28.7 H 11.8-14.3 % Platelet Count 401 140-450 10^3/uL Mean Platelet Volume 8.5 6.9-10.8 fL Neutrophils (%) (Auto) 74.9 37.0-80.0 % Lymphocytes (%) (Auto) 20.7 10.0-50.0 % Monocytes (%) (Auto) 3.8 0.0-12.0 % Eosinophils (%) (Auto) 0.1 0.0-7.0 % Basophils (%) (Auto) 0.5 0.0-2.0 % Neutrophils # (Auto) 4.5 1.6-8.6 10 ^3/uL Lymphocytes # (Auto) 1.2 0.4-5.4 10 ^3/uL Monocytes # (Auto) 0.2 0-1.3 10 ^3/uL Eosinophils # (Auto) 0 0-0.8 10 ^3/uL Basophils # (Auto) 0 0-0.2 10 ^3/uL Nucleated Red Blood Cells 0.2 % Urine Color Light-yellow Yellow Urine Clarity Turbid H Clear Urine pH 8.0 5.0-9.0 Urine Specific Liguori 1.008 1.001-1.035 Urine Protein Negative Negative Urine Ketones Negative Negative Urine Blood Negative Negative /uL Urine Nitrite Negative Negative Urine Bilirubin Negative Negative Urine Urobilinogen Normal Negative mg/dL Urine Leukocyte Esterase Negative Negative /uL Urine RBC <1 0 - 4 /hpf Urine Microscopic WBC 1 0-5 /HPF Urine Squamous Epithelial Cells None seen <5 /hpf Urine Amorphous Crystals Few None Seen /hpf Urine Bacteria None seen None Seen /hpf Urine Glucose Normal Normal mg/dL Current Medications Medications (Trade) Dose Ordered Sig/Susi Route Start Time Stop Time Status Last Admin Hydromorphone HCl (Dilaudid Injection) 1 mg ONCE ONCE IV 03/09/25 20:15 03/09/25 20:16 DC 03/09/25 21:15 Ondansetron HCl (Zofran) 4 mg ONCE ONCE IV 03/09/25 20:15 03/09/25 20:16 DC 03/09/25 20:15 Sodium Chloride 1,000 ml @ 1,000 mls/hr Q1H ONCE IV 03/09/25 21:45 03/09/25 22:44 DC 03/09/25 22:03 Sodium Chloride 1,000 ml @ 1,000 mls/hr Q1H ONCE IV 03/09/25 21:45 03/09/25 22:44 DC 03/09/25 22:12 Time of 1ST Reevaluation: 20:35 Reevaluation 1ST: Unchanged Patient Education/Counseling: Need For Follow Up Family Education/Counseling: No Family Present SEPSIS Sepsis Screen Date sepsis recognized/suspect: Mar 09, 2025 Time Sepsis recognized/suspect: 1912 Recent Procedure: No On Antibiotic Therapy: No Respiratory Rate >20: No Heart Rate >90: No Temp<36 C (96.8 F) or >38.3 C: No SBP <90 or MAP <65 mmHG: No New Acute Mental Status Change: No Is the patient on CPAP, BIPAP,: No Physician Orders Urinalysis (03/09/25 20:14) Test, Urine (03/09/25 20:14) Ct Ab Pel With Iv Con Only (03/09/25 20:14) Saline Lock (03/09/25 20:14) Notify Md If Abnormal Vs (03/09/25 20:14) Vital Signs Date Time Temp Pulse Resp B/P (MAP) Pulse Ox O2 Delivery O2 Flow Rate FiO2 03/10/25 00:49 97.6 49 16 151/86 (107) 98 97.6 03/09/25 21:15 92 26 156/95 03/09/25 20:38 115 26 183/114 (137) 98 03/09/25 19:22 99.0 84 16 159/103 98 99.0 Laboratory Tests Test 03/09/25 20:51 03/09/25 22:47 Lactic Acid Level 2.9 mmol/L (0.4-2.0) *H 1.0 mmol/L (0.4-2.0) White Blood Count 6.0 10^3/uL (4.4-10.8) Medications Medications Dose Ordered Sig/Susi Route Start Time Stop Time Status Last Admin Dose Admin Hydromorphone HCl 1 mg ONCE ONCE IV 03/09/25 20:15 03/09/25 20:16 DC 03/09/25 21:15 Ondansetron HCl 4 mg ONCE ONCE IV 03/09/25 20:15 03/09/25 20:16 DC 03/09/25 20:15 Sodium Chloride 1,000 ml @ 1,000 mls/hr Q1H ONCE IV 03/09/25 21:45 03/09/25 22:44 DC 03/09/25 22:03 Sodium Chloride 1,000 ml @ 1,000 mls/hr Q1H ONCE IV 03/09/25 21:45 03/09/25 22:44 DC 03/09/25 22:12 Departure 1 Departure Time of Disposition: 00:56 Impression: Primary Impression: Abdominal pain Disposition: 01 HOME / SELF CARE / HOMELESS Condition: Stable Additional Instructions: ED DISCHARGE INSTRUCTIONS Instructions: Please read all instructions provided in this packet carefully. Although you have been discharged from the Emergency Department, this does not mean that you have a "clean bill of health". No definitive diagnosis for your symptoms has been made today. It is possible that you are in the process of developing a serious illness. This is why you must return to the ED without fail if any new or worsening symptoms (especially if your symptoms include chest pain, trouble breathing, abdominal pain, fever, headache, confusion, trouble seeing, or trouble walking) It is also very important that you see a primary care provider (PCP) within the next 1-3 days to follow up. Follow up with your surgeon within this week. If you are unable to get an appointment, return to the ED for re-evaluation. Abdominal Pain: Care Instructions Overview Abdominal pain has many possible causes. Some aren't serious and get better on their own in a few days. Others need more testing and treatment. If your pain continues or gets worse, you need to be rechecked and may need more tests to find out what is wrong. You may need surgery to correct the problem. Don't ignore new symptoms, such as fever, nausea and vomiting, urination problems, pain that gets worse, and dizziness. These may be signs of a more serious problem. If you are not getting better, you may need more tests or treatment. The doctor has checked you carefully, but problems can develop later. If you notice any problems or new symptoms, get medical treatment right away. Follow-up care is a smith part of your treatment and safety. Be sure to make and go to all appointments, and call your doctor if you are having problems. It's also a good idea to know your test results and keep a list of the medicines you take. How can you care for yourself at home? Rest until you feel better. To prevent dehydration, drink plenty of fluids. Choose water and other clear liquids until you feel better. If you have kidney, heart, or liver disease and have to limit fluids, talk with your doctor before you increase the amount of fluids you drink. When you feel like eating, start with small amounts. Do not have alcohol, caffeine, or spicy, hot, or high-fat foods for a day or two. Avoid anti-inflammatory medicines such as aspirin, ibuprofen (Advil, Motrin), and naproxen (Aleve). These can cause stomach upset. Talk to your doctor if you take daily aspirin for another health problem. When should you call for help? Call 911 anytime you think you may need emergency care. For example, call if: You passed out (lost consciousness). You pass maroon or very bloody stools. You vomit blood or what looks like coffee grounds. You have severe belly pain. Call your doctor now or seek immediate medical care if: Your pain gets worse, especially if it becomes focused in one area of your belly. You have a new or higher fever. Your stools are black and look like tar, or they have streaks of blood. You have unexpected vaginal bleeding. You have symptoms of a urinary tract infection. These may include: Pain when you urinate. Urinating more often than usual. Blood in your urine. You are dizzy or lightheaded, or you feel like you may faint. Watch closely for changes in your health, and be sure to contact your doctor if: You are not getting better as expected. Credits for Abdominal Pain: Care Instructions Current as of: February 14, 2023 Author: [employer], [employer] Staff Clinical Review Board All [employer] education is reviewed by a team that includes physicians, nurses, advanced practitioners, registered dieticians, and other healthcare professionals. Comments MDM: 49-year-old female presented with abdominal pain. No peritoneal signs on abdominal exam. No evidence of acute abdomen at this time. patient is well appearing. Labs show no leukocytosis or elevation of LFTs. Elevated lactic acid improved with IV fluids. Vital signs improved. Imaging shows no acute process. At the time of discharge patient is afebrile and is not hypotensive. Low suspicion for acute hepatobiliary disease (including acute cholecystitis, acute pancreatitis, PUD (including perforation), acute infectious process (pneumonia, hepatitis, pyelonephritis), acute appendicitis, vascular catastrophe, bowel obstructions, viscous perforation. Presentation not consistent with other acute, emergent causes of abdominal pain at this time. Patient felt stable for discharge home to follow up with the primary care provider promptly. Patient advised to return to the emergency department with any new, worsening or concerning symptoms. I reviewed the following notes from the pt's past medical encounters: N/A The following tests were ordered, and results were reviewed by me: (See diagnostic results section) The following test were independently interpreted by me: N/A Additional information was gathered from interviewing the following independent historians: N/A I reviewed and agreed with the following test results read by other providers: N/A I discussed treatments and results with patient Decision regarding hospitalization or escalation of hospital level of care: Risks and benefits of admission for further treatment of patient's condition was considered however due to patient's stable condition patient will be discharged to follow up closely or return to care for worsening of condition or inability to follow up. Critical Care Note Critical Care Time?: No Stability Stability form required: No Heart Score Heart Score: Heart Score Response (Comments) Value History N/A 0 EKG N/A 0 Age N/A 0 Risk Factors N/A 0 Troponin N/A 0 Total 0 LISA MALDONADO MD Mar 09, 2025 20:45
[2025-03-09] MEDS: HYDROmorphone HCL 2 MG/ML VL/or syr IV ONE (21:15)
[2025-03-09 21:19] LABS: Urine Amorphous Crystal FEW /hpf (None Seen); Urine Protein, UAD Negative (Negative)
[2025-03-09 21:33] LABS: Lactic Acid w/Reflex 2.9 mmol/L (0.4-2.0)
--- NOTE | 2025-03-09 22:01 | DVH ---
CLINICAL HISTORY: Epigastric abdominal pain, status post cholecystectomy TECHNIQUE: CT of the abdomen and pelvis was performed with IV contrast. This exam was performed according to our departmental dose optimization program. Up-to-date CT equipment and radiation dose reduction techniques are utilized as appropriate. CTDI 8.8 DLP 434 COMPARISON: CT CT AB PEL WITH IV CON ONLY on DOS: 12/11/24, US PELVIC TRANS AB AND TRANSVAG on DOS: 09/03/24, CT CT ANGIO ABD AORTA W RUN OFF on DOS: 08/24/24, CT CT AB PEL WO CON-NO ORAL OR IV on DOS: 08/24/24, CT CT AB PEL WO CON-NO ORAL OR IV on DOS: 06/12/24 FINDINGS: Abdomen/Pelvis: The spleen, pancreas, adrenal glands, kidneys, liver, and bladder are unremarkable. The gallbladder is absent. There is a posterior uterine fibroid. The abdominal aorta is normal in course and caliber. There are no significant atherosclerotic calcifications. There is no free intraperitoneal air or fluid. There is no enlarged abdominal or pelvic lymph node. There is no bowel wall thickening or dilatation. The appendix is normal. Other: The imaged lower thorax is unremarkable. No acute osseous abnormality is evident. IMPRESSION: No acute CT abnormality in the abdomen/pelvis. Cholecystectomy.
[2025-03-09] MEDS: SODIUM CHLORIDE 0.9% 1,000 ML IV ONE ×2 (22:03→22:12)
[2025-03-09] MEDS: IOHEXOL 300 MG/ML 100ML BOTTLE IJ ONE (22:06)
[2025-03-09 22:07] LABS: Hematocrit 40.1 % (36.0-46.0); Hemoglobin 13.2 g/dL (12.2-16.2); Mean Corpuscular Hemoglobin 26.6 pg (28.0-32.0); Mean Corpuscular Volume 80.8 fL (80.0-100.0); Nucleated Red Blood Cells % 0.2 %
[2025-03-09 22:20] LABS: Anion Gap 13 (5-15)
[2025-03-09 22:42] LABS: BUN/Creatinine Ratio 22.8 (10.0-20.0)
[2025-03-09 22:43] LABS: Alanine Aminotransferase 124 U/L (7-40); Albumin 4.5 g/dL (3.2-4.8); Alkaline Phosphatase 306 U/L (46-116); Bilirubin, Total 0.4 mg/dL (0.2-1.0); Blood Urea Nitrogen 13 mg/dL (9-23); Calcium 9.0 mg/dL (8.7-10.4); Carbon Dioxide 23 mmol/L (20-31); Chloride 111 mmol/L (98-107); Glucose 88 mg/dL (74-106); Lipase 70 U/L (12-53); Potassium 3.4 mmol/L (3.5-5.1); Sodium 147 mmol/L (136-145); Total Protein 7.6 g/dL (5.7-8.2)
[2025-03-10 00:49] VITALS: BP 151/86; PULSE 49; RESP 16; TEMP 97.6; O2SAT 98
[2025-03-10] MEDS: HYDROcodone-ACET 5/325MG TAB PO ONE (01:20)
== END 2025-03-10 01:25 | disposition home or self-care (01) ==
LOC: EDBD 19:04 → ER 19:04
DX: R10.13 Epigastric pain (principal); Z90.49 Acquired absence of other specified parts of digestive tract; Z79.899 Other long term (current) drug therapy
CPT/HCPCS: 36415; 74177; 80053; 81001; 83605; 83690; 85025; 96361; 96374; 96375; 99285; J1171; J2405; J7030; Q9967